=== PATIENT | male | born 1945 | race Caucasian/White ===

== ENCOUNTER 2018-08-05 01:55 | Emergency (ER) | payer OTHER ==
[2018-08-05] MEDS ORDERED: IPRATROPIUM/ALBUTEROL 3 ML DEYVIAL IH ONE (02:51)
[2018-08-05] MEDS ORDERED: BENZONATATE 100 MG CAP PO ONE (02:51)
[2018-08-05] MEDS ORDERED: ALBUTEROL INH PREPACK MDI TAKEHOME ONE (03:24)
--- NOTE | 2018-08-05 03:34 | EDPHY ---
H & P Stated Complaint: Pt states he has pertussis and is not getting better Time Seen by Provider: 08/05/18 02:17 HPI/ROS: HPI The patient presents with cough which has been present for the last 2 weeks approximately. It is nonproductive, occurs in fits, is hacking in nature and has made it difficult for him to sleep at night. Two days ago he had a telemedicine visit with the doctor who thought he might have pertussis. He was started on azithromycin and prednisone. He says that these medications have helped him significantly and he is feeling better, however tonight he had 3 coughing fits and he has had difficulty sleeping because when he lays flat the cough is worse. He does not have any chest pain, shortness of breath, nausea, vomiting. He has not had any fevers or chills. He does have several sick contacts within his family. He does not have any history of lung disease. REVIEW OF SYSTEMS 10 systems were reviewed and negative with the exception of the elements mentioned in the history of present illness. PMHx: Pre diabetes, hypothyroidism, hypertension Soc Hx: Nonsmoker PHYSICAL General Appearance: Alert, no distress Eyes: Pupils equal and round no pallor or injection ENT, Mouth: Mucous membranes moist Respiratory: There are no retractions, lungs are clear to auscultation Cardiovascular: Regular rate and rhythm Gastrointestinal: Abdomen is soft and non-tender, no masses, bowel sounds normal Neurological: A&O, moves all extremities Skin: Warm and dry, no rashes Musculoskeletal: Neck is supple non tender Extremities: symmetrical, full range of motion Psychiatric: Patient is oriented X 3, there is no agitation Source: Patient Exam Limitations: No limitations - Personal History Current Tetanus/Diphtheria Vaccine: Yes Current Tetanus Diphtheria and Acellular Pertussis (TDAP): Yes - Medical/Surgical History Hx Asthma: No Hx Chronic Respiratory Disease: No Hx Diabetes: No Hx Cardiac Disease: No Hx Renal Disease: No Hx Cirrhosis: No Hx Alcoholism: No Hx HIV/AIDS: No Hx Splenectomy or Spleen Trauma: No - Social History Smoking Status: Never smoked Constitutional: Initial Vital Signs Temperature (C) 36.5 C 08/05/18 01:55 Heart Rate 82 08/05/18 01:55 Respiratory Rate 18 08/05/18 01:55 Blood Pressure 165/105 H 08/05/18 01:55 O2 Sat (%) 92 08/05/18 01:55 O2 Delivery Mode Room Air Allergies/Adverse Reactions: No Known Allergies Allergy (Verified 08/05/18 02:00) Home Medications: Medication Instructions Recorded Levothyroxine [Synthroid 100 mcg 0 mcg PO DAILY06 04/04/12 (RX)] Simvastatin [Zocor 10 mg (RX)] 0 mg PO DAILY18 04/04/12 Benzonatate [Tessalon Pearles (RX)] 100 mg PO Q6H PRN #20 cap 08/05/18 Metformin 1000 mg 08/05/18 Medical Decision Making - Diagnostics Imaging Results: Chest x-ray two view shows peribronchial thickening without any discrete infiltrate, interpreted by me, radiology interpretation is pending. Imaging: I viewed and interpreted images myself Differential Diagnosis: 73-year-old male with 2 weeks of nonproductive cough. He has been diagnosed with whooping cough and has been started on azithromycin and prednisone via telemedicine visit. Here, he is very well-appearing, vital signs are normal and he is afebrile. His lungs sound clear bilaterally though he does have occasional dry cough here. Chest x-ray was obtained which shows likely bronchitis, no infiltrate seen. The patient was given a DuoNeb and Tessalon Perles here with improvement in his symptoms. I have advised him to continue taking the azithromycin and prednisone. He will follow up with his primary care doctor. I have considered pneumonia though chest x-ray is normal. The patient shows no signs of sepsis. He does not have chest pain making pulmonary embolism unlikely. - Data Points Medications Given: Discontinued Medications Albuterol/Ipratropium (Duoneb) 3 ml IH EDNOW ONE Stop: 08/05/18 02:52 Last Admin: 08/05/18 02:55 Dose: 3 ml Benzonatate (Tessalon Pearles) 200 mg PO EDNOW ONE Stop: 08/05/18 02:52 Last Admin: 08/05/18 02:55 Dose: 200 mg Departure - Departure Disposition: Home, Routine, Self-Care Clinical Impression: Cough Condition: Good Instructions: Wheezing (ED) Additional Instructions: Please follow-up with your primary care doctor in the next few days. Referrals: ELA STOREY [Medical Doctor] - As per Instructions Prescriptions: Benzonatate [Tessalon Pearles (RX)] 100 mg PO Q6H PRN #20 cap PRN Reason: Cough, Mild
[2018-08-05 03:46] VITALS: BP 154/90
== END 2018-08-05 03:45 | disposition home or self-care (01) ==
DX: R05 Cough (principal); J98.09 Other diseases of bronchus, not elsewhere classified; I10 Essential (primary) hypertension; R73.03 Prediabetes; E03.9 Hypothyroidism, unspecified